=== PATIENT | male | born 1980 | race African-American/Black ===

== ENCOUNTER 2016-10-15 19:18 | Emergency (ER) | payer OTHER ==
[2016-10-15 19:49] VITALS: BP 150/114
--- NOTE | 2016-10-15 22:50 | ER Document Report ---
ED General - General Chief Complaint: Ankle Pain Stated Complaint: ANKLE PAIN Time Seen by Provider: 10/15/16 22:31 Notes: Patient is a 36-year-old male who presents ER with complaint of right ankle pain. Patient says he hurt his right ankle several years ago. He was told that he may have a fracture and also that he has an Achilles tendon injury. He says that he lost his job and insurance and therefore never had 6. He says he was doing well until recently. Recently has had pain with walking or applying weight to the right ankle. He says the pain is mostly to the medial anterior aspect of the right ankle. No new injuries. No other complaints. TRAVEL OUTSIDE OF THE [place] IN LAST 30 DAYS: No - Related Data Allergies/Adverse Reactions: ceftriaxone sodium [From Rocephin] Allergy (Verified 01/09/12 14:42) Past Medical History - Social History Smoking Status: Current Every Day Smoker Frequency of alcohol use: None Drug Abuse: None Family History: Reviewed & Not Pertinent Patient has suicidal ideation: No Patient has homicidal ideation: No Pulmonary Medical History: Reports: Hx Asthma Renal/ Medical History: Denies: Hx Peritoneal Dialysis - Immunizations Hx Diphtheria, Pertussis, Tetanus Vaccination: No Review of Systems - Review of Systems Notes: My Normal Review Basic REVIEW OF SYSTEMS: CONSTITUTIONAL : Denies fever, chills, or sweats. Denies recent illness. MUSCULOSKELETAL: Right ankle pain. SKIN: Denies rash or skin lesions. NEUROLOGICAL: Denies sensory or motor loss. ALL OTHER SYSTEMS REVIEWED AND NEGATIVE. Physical Exam - Vital signs Vitals: Temp Pulse Resp BP Pulse Ox 98.9 F 111 H 18 150/114 H 95 10/15/16 19:45 10/15/16 19:45 10/15/16 19:45 10/15/16 19:45 10/15/16 19:45 - Notes Notes: General Appearance: Well nourished, alert, cooperative, no acute distress, mild obvious discomfort. Vitals: reviewed, See vital signs table. Eyes: Conjuctiva clear patient has no swelling to the ankle. Extremities: strength 5/5 in all extremities, good pulses in all extremities, she has no pain to palpation over the Achilles tendon. He has good strength with plantar or dorsiflexion against resistance. He has some pain to palpation over the medial aspect of the ankle. No pain to palpation over lateral aspect of the ankle. Skin: warm, dry, appropriate color, no rash Neuro: speech clear, oriented x 3, normal affect, responds appropriately to questions. Distal sensation intact. Course - Re-evaluation Re-evalutation: 10/17/16 00:12 Patient's ankle x-ray is normal. He has pain only over the deltoid ligament currently. No pain to palpation over the Achilles tendon. He has good strength with plantar dorsiflexion. I suspect this is to be exacerbation of his pain from his injury a few years ago. I informed him to follow-up with orthopedics if he continues to have pain. Patient agrees with plan will be discharged home. We will give him crutches so that he is not to be weightbearing on his ankle until pain is improved. - Vital Signs Vital signs: Temp Pulse Resp BP Pulse Ox 98.9 F 111 H 18 150/114 H 95 10/15/16 19:45 10/15/16 19:45 10/15/16 19:45 10/15/16 19:45 10/15/16 19:45 Discharge - Discharge Clinical Impression: Ankle pain, right Qualifiers: Chronicity: chronic Qualified Code(s): M25.571 - Pain in right ankle and joints of right foot Condition: Good Disposition: HOME, SELF-CARE Additional Instructions: Please stay nonweight bearing off of the right ankle until you are pain free or until cleared by the orthopedist, Dr. Amin. Please return to the ER immediately if you have worsening pain, increasing swelling, or have further concerns. Forms: Special Work Note, Return to Work Referrals: MARIPOSA AMIN MD [ACTIVE STAFF] - Follow up in 3-5 days
--- NOTE | 2016-10-15 23:12 | RADIOLOGY REPORT (SQ) ---
EXAM DESCRIPTION: ANKLE RIGHT COMPLETE COMPLETED DATE/TIME: 10/15/2016 11:04 pm REASON FOR STUDY: ankle pain COMPARISON: None. NUMBER OF VIEWS: Three views. TECHNIQUE: AP, lateral, and oblique radiographic images acquired of the right ankle. LIMITATIONS: None. FINDINGS: MINERALIZATION: Normal. BONES: No acute fracture or dislocation. No worrisome bone lesions. JOINTS: No effusions. SOFT TISSUES: No soft tissue swelling. No foreign body. OTHER: No other significant finding. IMPRESSION: NEGATIVE STUDY OF THE RIGHT ANKLE. NO RADIOGRAPHIC EVIDENCE OF ACUTE INJURY. TECHNICAL DOCUMENTATION: JOB ID: [id number] [employer]- All Rights Reserved
== END 2016-10-16 00:10 | disposition home or self-care (01) ==
LOC: ER 19:18
DX: M25.571 Pain in right ankle and joints of right foot (principal); F17.200 Nicotine dependence, unspecified, uncomplicated
CPT/HCPCS: 99283; 73610; L1902